=== PATIENT | female | born 1970 | race Caucasian/White ===

== ENCOUNTER 2018-01-20 20:26 | Emergency (ER) | payer MEDICAID | END 2018-01-20 22:24 | disposition left against medical advice (07) | LOC: FTE 20:26 | DX: S05.11XA Contusion of eyeball and orbital tissues, right eye, initial encounter (principal); H11.31 Conjunctival hemorrhage, right eye; V49.50XA Passenger injured in collision with unspecified motor vehicles in traffic accident, initial encounter | CPT/HCPCS: 99282; Z7502 ==